=== PATIENT | female | born 2000 | race Caucasian/White ===

== ENCOUNTER 2021-11-11 19:23 | Emergency (ER) | payer SELFPAY ==
[~2021-11-11] VITALS: Ht 175.3 cm; Wt 72.7 kg
[2021-11-11] MEDS ORDERED: MethylPREDNISolone SOD SUCC 125 MG/2 ML VIAL IVP ONE (20:00)
[2021-11-11] MEDS ORDERED: DiphenhydrAMINE HCL 50 MG/ML VIAL IVP ONE (20:00)
[2021-11-11] MEDS ORDERED: DIPH25TA20 PO (21:46)
[2021-11-11 22:00] VITALS: BP 120/72
== END 2021-11-11 22:15 | disposition home or self-care (01) ==
LOC: EMS 19:23
DX: T78.1XXA Other adverse food reactions, not elsewhere classified, initial encounter (principal); Z91.013 Allergy to seafood; X58.XXXA Exposure to other specified factors, initial encounter
CPT/HCPCS: 96374; 96375; 99284; J1200; J2930